=== PATIENT | female | born 1990 | race Caucasian/White ===

== ENCOUNTER 2017-09-03 14:59 | Emergency (ER) | payer OTHER ==
[~2017-09-03] VITALS: Ht 167.6 cm; Wt 61.2 kg
[2017-09-03 15:21] LABS: HEMATOCRIT 39 % (33-45); HEMOGLOBIN 13.4 g/dL (11.5-14.8); RED BLOOD CELL COUNT(AUTO) 4.61 MIL/uL (4.0-5.2); WHITE BLOOD COUNT (AUTO) 11.8 K/uL (4.3-11.0)
[2017-09-03 15:22] LABS: BASOPHILS % (AUTO) 0.3 % (0.0-2.0); EOSINOPHILS % (AUTO) 0.8 % (0.0-6.0); LYMPHOCYTES # (AUTO) 2.6 /CMM (0.8-4.8); LYMPHOCYTES % (AUTO) 22.1 % (20.0-44.0); MEAN CORPUSCULAR HEMOGLOBIN 29 PG (26.0-33.0); MEAN CORPUSCULAR HGB CONC 34 g/dl (31.0-36.0); MEAN CORPUSCULAR VOLUME 85 fL (82-100); MONOCYTES # (AUTO) 0.5 /CMM (0.1-1.30); MONOCYTES % (AUTO) 4.4 % (2.0-12.0); NEUTROPHILS # (AUTO) 8.6 /CMM (1.8-8.9); NEUTROPHILS % (AUTO) 72.4 % (43.0-81.0); PLATELET COUNT (AUTO) 290 /CMM (150-450); RDW COEFFICIENT OF VARIATION 12.1 (11.5-15.0)
[2017-09-03 15:26] LABS: CALCIUM, SERUM 9.4 mg/dL (8.5-10.1); CARBON DIOXIDE 26 mmol/L (21-32); CHLORIDE 101 mmol/L (98-107); CREATININE 0.8 mg/dL (0.6-1.3); GLUCOSE 92 mg/dL (74-106); POTASSIUM 3.9 mmol/L (3.5-5.1); SODIUM SERUM 135 mmol/L (136-145); UREA NITROGEN, BLOOD 10 mg/dL (7-18)
--- NOTE | 2017-09-03 15:27 | NUR ---
[id number]: EMOTIONAL DISTRESS. REQUESTS PSYCHE EVAL.PATIENT IS AWAKE AND ALERT. APPEARS IN NO DISTRESS. RESPIRATION EVEN AND UNLABORED. PATIENT DENIES CHEST PAIN, NO SOB. SKIN IS WARM TO TOUCH AND NON DIAPHORETIC. PATIENT IS AFEBRILE. GOWNED PT AND PLACED ON TELE MONITOR. SEEN BY
[2017-09-03 15:39] LABS: ACETAMINOPHEN < 2 ug/ml (10-30); ALANINE AMINOTRANSFERASE 18 U/L (12-78); ALBUMIN 3.9 g/dL (3.4-5.0); ALCOHOL, BLOOD < 3 mg/dL (0-0); ALKALINE PHOSPHATASE 42 U/L (46-116); ASPARTATE AMINOTRANSFERASE 20 U/L (15-37); BILIRUBIN,DIRECT 0.1 mg/dL (0.0-0.2); BILIRUBIN,TOTAL 0.4 mg/dL (0.2-1.0); SALICYLATE 1.8 mg/dL (2.8-20.0); TOTAL PROTEIN, SERUM 7.5 g/dL (6.4-8.2)
[2017-09-03 16:30] LABS: BILIRUBIN,URINE Negative (NEGATIVE); BLOOD, URINE Trace-intact Ery/uL (NEGATIVE); KETONES,URINE Negative (NEGATIVE); LEUKOCYTE ESTERASE ,URINE Small (NEGATIVE); NITRITE, URINE Negative (NEGATIVE); PH,URINE 6.5 (5.0-8.0); PROTEIN,URINE Negative (NEGATIVE); UGLUCOSE Negative (NEGATIVE); UROBILINOGEN,URINE 0.2 EU/dL (0.2)
[2017-09-03 16:31] LABS: APPEARANCE,URINE SLIGHTLY HAZY (CLEAR); COLOR,URINE STRAW (YELLOW)
[2017-09-03 16:40] LABS: BACTERIA,URINE Moderate /HPF (None Seen); SQUAMOUS EPITHELIAL CELL,UR Many /HPF (None Seen)
--- NOTE | 2017-09-03 17:00 | NUR ---
Called Pinky for psych eval.
[2017-09-03 18:34] VITALS: BP 134/80
--- NOTE | 2017-09-03 18:35 | NUR ---
Patient discharged to home in stable condition. Written and verbal after care instructions given. Patient verbalizes understanding of instruction.
== END 2017-09-03 18:35 | disposition home or self-care (01) ==
LOC: ER 15:01
DX: F41.1 Generalized anxiety disorder (principal); F95.2 Tourette's disorder
CPT/HCPCS: 36415; 80048; 80076; 80305; 80329; 81001; 84703; 85025; 87086; 99284; A4606; G0480 ×2; Z7610; 81000-TC